=== PATIENT | female | born 1950 | race Caucasian/White ===

== ENCOUNTER 2020-07-21 02:09 | Observation (INO) | payer MEDICARE ==
[~2020-07-21] VITALS: Ht 154.9 cm; Wt 90.0 kg
--- NOTE | 2020-07-21 02:26 | NUR ---
WATER TEST/ FAILED PT BROUGHT IT BACK UP. ERP INFORMED. GI TO BE CALLED FOR EGD. VSS. IV PATENT.
--- NOTE | 2020-07-21 02:38 | NUR ---
PT UPDATED ON PLAN FOR EGD IN OR AROUND 5AM. PT HAD NEG RAPID COVID DONE FEW HOURS AGO AT [facility].
--- NOTE | 2020-07-21 02:41 | NUR ---
NEG COVID DOCUMENTED FROM [facility] SUFFICIENT PER DR PINEDA. CANCELLED RAPID.
--- NOTE | 2020-07-21 03:48 | NUR ---
SLEEPING, VSS. WAITING FOR EGD IN AM
--- NOTE | 2020-07-21 04:43 | NUR ---
PT SITTING UP, RR EQUAL AND UNLABORED NO MORE N/V, NO DROOLING, AIRWAY CLEAR. VSS. WAITING FOR GI/EGD IN OR. COVID FROM [facility] NEG. IV PATENT FROM [facility].
--- NOTE | 2020-07-21 06:01 | NUR ---
PT TAKEN TO OR FOR EGD. VSS. REPORT TO OR NURSE/ENDO NURSE.
[2020-07-21] MEDS ORDERED: FENTANYL PF 250 MCG/5ML ONE (06:09)
[2020-07-21] MEDS ORDERED: PROPOFOL 10 MG/ML, 20ML ONE (06:10)
[2020-07-21] MEDS ORDERED: SUCCINYLCHOLINE 20 MG/ML, 10ML ONE (06:10)
[2020-07-21] MEDS ORDERED: MEPERIDINE/PF 25MG/0.5ML IVPush PRN (06:30)
[2020-07-21] MEDS ORDERED: LABETALOL 5MG/ML, 20ML IV PRN (06:30)
[2020-07-21] MEDS ORDERED: METHOCARBAMOL 1,000 MG in DEXTROSE 5% 100 ML IV PRN (06:30)
[2020-07-21] MEDS ORDERED: FENTANYL PF 100 MCG/2ML IV PRN (06:30)
[2020-07-21] MEDS ORDERED: PROMETHAZINE 25 MG/ML, 1ML IVPush PRN (06:30)
[2020-07-21] MEDS ORDERED: OXYcodone 5 MG/5 ML ORAL.SOL UDC PO PRN (06:30)
[2020-07-21] MEDS ORDERED: EPHEDRINE 50 MG/ML, 1ML IVPush PRN (06:30)
[2020-07-21] MEDS ORDERED: LORazepam 2 MG/ML, 1ML IVPush PRN (06:30)
[2020-07-21] MEDS ORDERED: hydrALAzine 20 MG/ML, 1ML IV PRN (06:30)
[2020-07-21] MEDS ORDERED: ACETAMINOPHEN 325 MG TABLET PO PRN (06:30)
[2020-07-21] MEDS ORDERED: HYDROmorphone 1 MG/ML, 1ML INJ IVPush PRN (06:30)
[2020-07-21] MEDS ORDERED: ONDANSETRON 2MG/ML, 2ML IVPush PRN (06:30)
[2020-07-21] MEDS ORDERED: ACETAMINOPHEN 650 MG/20.3 ML UDC ONE (07:19)
[2020-07-21 08:35] VITALS: BP 109/74
[2020-07-21 11:16] VITALS: BP 96/64
== END 2020-07-21 11:40 | disposition home or self-care (01) ==
LOC: ED 02:39 → 4NE 07:00 → ED 12:29
PROVIDERS: ADMIT Internal Medicine; ATTEND Internal Medicine
DX: T18.128A Food in esophagus causing other injury, initial encounter (principal); K74.60 Unspecified cirrhosis of liver; B18.2 Chronic viral hepatitis C; K22.10 Ulcer of esophagus without bleeding; K31.9 Disease of stomach and duodenum, unspecified; K26.9 Duodenal ulcer, unspecified as acute or chronic, without hemorrhage or perforation
CPT/HCPCS: 43200; 99284; G0378; J0330; J2704; J3010